=== PATIENT | female | born 1990 | race Caucasian/White ===

== ENCOUNTER 2017-01-22 10:39 | Emergency (ER) | payer OTHER ==
[~2017-01-22] VITALS: Ht 170.2 cm; Wt 76.2 kg
[2017-01-22 10:46] VITALS: BP 116/78
--- NOTE | 2017-01-22 11:20 | ED PSYCHIATRIC COMPLAINT ---
History of Present Illness General Chief Complaint: ETOH/Drug Related Complaint Stated Complaint: HEROIN DETOX LAST USE 4AM Source: patient Exam Limitations: no limitations Vital Signs & Intake/Output Vital Signs & Intake/Output Vital Signs Date Time Temp Pulse Resp B/P Pulse O2 O2 Flow FiO2 Ox Delivery Rate 01/22 1145 Room Air Room Air 01/22 1046 97.0 94 20 116/78 98 Room Air Allergies Coded Allergies: No Known Allergies (01/22/17) Reconcile Medications Amoxicillin 500 MG TABLET 1 TAB PO BID BRONCHITIS Clonidine HCl 0.1 MG TABLET 1 TAB PO TID PRN WITHDRAWL Ondansetron HCl (Zofran) 4 MG TABLET 1 TAB PO Q6-8P PRN NAUSEA Triage Note: PT REQUEST HEROIN DETOX. LAST USED 0400, USUALLY USES 7-8 BAGS/DAY. STATES SHE HAS BEEN USING IT FOR A MONTH. PT DENIES SI/HI Triage Nurses Notes Reviewed? yes Onset: Abrupt Duration: day(s): Timing: recent history : No Patient currently breastfeeds: No HPI: 01/22/17 26-year-old female presents to the emergency department for assistance with opiate rehabilitation. The patient states that she was discharged from a drug rehabilitation center in [place] in November. She started using again over the past month. She's injecting heroin multiple bags a day. She also has been smoking crack. She does admit to a cough productive of yellow sputum. She denies any other complaints. No chest pain or shortness of breath. She does admit to depression. She denies suicidal ideation. She does not wish to speak with crisis today. The onset of the symptoms have been abrupt, the duration has been the past month, the severity is significant as her symptoms required to come to the emergency department for care. On physical exam vital signs stable she is afebrile. She's awake and alert she's oriented 3. She has no suicidal ideation. Her lungs are clear. She does have puncture wounds in the left dorsal hand. The remainder of physical exam is unremarkable. Past History Travel History Traveled to [place] past 21 day No Medical History Any Pertinent Medical History? see below for history Psychiatric: IV drug abuse Surgical History Surgical History: non-contributory Psychosocial History What is your primary language [place]arag[place] Tobacco Use: Current Daily Use Daily Tobacco Use Amount/Type: => 5 Cigarettes daily ETOH Use: occasional use Illicit Drug Use: cocaine, heroin Family History Hx Contributory? No Review of Systems Review of Systems Constitutional: Denies: fever. EENTM: Denies: visual changes. Respiratory: Denies: short of breath. Cardiovascular: Denies: edema. GI: Denies: abdominal pain. Genitourinary: Reports: no symptoms. Musculoskeletal: Reports: no symptoms. Skin: Reports: no symptoms. Neurological/Psychological: Reports: no symptoms. Hematologic/Endocrine: Reports: no symptoms. Physical Exam Physical Exam General Appearance: alert, awake, anxious, mild distress Head: atraumatic, normal appearance Eyes: Bilateral: normal appearance, PERRL, EOMI. Ears, Nose, Throat: normal pharynx, normal ENT inspection Neck: normal inspection, supple, full range of motion Respiratory: normal breath sounds, chest non-tender, no respiratory distress Cardiovascular: regular rate/rhythm, edema Gastrointestinal: soft, non-tender Extremities: normal range of motion Neurological/Psychiatric: no motor/sensory deficits, awake, agitated, alert Appearance/Memory/Insight: appropriate appearance Behavoir/Eye Contact/Speech: cooperative Thoughts/Hallucinations: normal thought pattern Skin: intact, normal color, warm/dry SAD PERSONS SAD PERSONS Response Value Previous Attempts/Psych Care yes 1 Excessive Ethanol/Drug Use? yes 1 Single//? yes 1 Social Support? has support 0 Total 3 SAD PERSONS Done? yes, patient not suicidal Progress Differential Diagnosis: drug intoxication, drug overdose, depression Plan of Care: follow up at out patient drug rehab program Pre-Hospital EKG: none Departure Departure Disposition: HOME OR SELF CARE Condition: Stable Clinical Impression Primary Impression: Heroin use disorder, moderate, dependence Referrals: YEFRI SOLORIO,STEPHANIE Moser (PCP/Family) Departure Forms: Customer Survey General Discharge Information Prescriptions: Current Visit Scripts Amoxicillin 1 TAB PO BID #20 TAB Clonidine HCl 1 TAB PO TID PRN WITHDRAWL #9 TAB Ondansetron HCl (Zofran) 1 TAB PO Q6-8P PRN NAUSEA #6 TAB Comments I discussed the plan of care with the patient and her parents. Options were discussed. The patient was in agreement with someone from [facility] reaching out to her to discuss possible drug rehabilitation. The patient understood, she can return to the emergency department if worse she was given clonidine and Zofran
[2017-01-22] MEDS ORDERED: ZOFRAN4 M2 PO (11:48)
[2017-01-22] MEDS ORDERED: AMOXICILLIN500 M3 PO (11:48)
[2017-01-22] MEDS ORDERED: CLONIDINE HCL0.1 MG PO (11:48)
--- NOTE | 2017-01-29 10:27 | IOP INCIDENTAL NOTE ---
IOP Incidental Note Details: Patient did not attend scheduled IOP intake appointment today for 10:00am. Placed outreach call, voicemail left requesting call back.
== END 2017-01-22 12:10 ==
LOC: ERH 10:39
DX: F11.20 Opioid dependence, uncomplicated (principal)